=== PATIENT | male | born 1970 | race Caucasian/White ===

== ENCOUNTER 2017-04-15 13:39 | Observation (INO) | payer OTHER ==
--- NOTE | 2017-04-15 13:59 | CPEKG ---
Heart Rate: 67 RR Interval: 896 P-R Interval: 164 QRSD Interval: 100 QT Interval: 424 QTC Interval: 448 P [place]: -16 QRS [place]: 61 T Wave [place]: 54 EKG Severity - NORMAL ECG - EKG Impression: SINUS RHYTHM Electronically Signed By: Shine Cristina 15-Apr-2017 15:25:37
[2017-04-15 14:11] LABS: ABSOLUTE IMMATURE GRANULOCYTES 0.08 10^3/uL (0.00-0.10); ADD DIFF? NO; ADD MORPH? NO; ADD SCAN? NO; ATYPICAL LYMPHOCYTE FLAG 10 (0-99); FRAGMENT RBC FLAG 0 (0-99); HEMATOCRIT 47.1 % (40.0-51.0); HEMOGLOBIN 16.8 g/dL (13.7-17.5); LEFT SHIFT FLG 10 (0-99); LIPEMIA HEMOLYSIS FLAG 90 (0-99); MEAN CELL HEMOGLOBIN 30.3 pg (27.9-34.1); MEAN CELL HEMOGLOBIN CONCENTR. 35.7 g/dL (32.4-36.7); MEAN PLATELET VOLUME 9.7 fL (8.7-11.7); PLATELET CLUMPS FLAG 0 (0-99); PLATELET COUNT 213 10^3/uL (150-400); RED BLOOD CELL COUNT 5.54 10^6/uL (4.40-6.38); RED CELL DISTRIBUTION WIDTH 12.2 % (11.5-15.2)
[2017-04-15 14:21] LABS: APTT 27.9 SEC (23.0-38.0); INR 1.07 (0.83-1.16); PROTIME(PATIENT) 14.1 SEC (12.0-15.0)
[2017-04-15 14:26] LABS: ANION GAP 10 mEq/L (8-16); CALCIUM 9.5 mg/dL (8.5-10.4); CARBON DIOXIDE 22 mEq/l (22-31); CHLORIDE 108 mEq/L (97-110); CREATININE 0.8 mg/dL (0.7-1.3); GLOMERULAR FILTRATION RATE > 60; GLUCOSE 93 mg/dL (70-100); POTASSIUM 4.3 mEq/L (3.5-5.2); SODIUM 140 mEq/L (134-144)
[2017-04-15] MEDS ORDERED: IOPAMIDOL (ISOVUE-370) 150 ML BTL IV ONE (14:44)
[2017-04-15] MEDS ORDERED: LIDOCAINE 1% 300 MG/30 ML SDV ONE (14:44)
[2017-04-15] MEDS ORDERED: MIDAZOLAM 2 MG/2 ML VIAL ONE ×3 (14:45→16:06)
[2017-04-15] MEDS ORDERED: fentaNYL 100 MCG/2 ML INJ ONE ×3 (14:45→16:06)
[2017-04-15] MEDS ORDERED: ASPIRIN 325 MG TAB ONE (15:09)
--- NOTE | 2017-04-15 15:20 | EDPHY ---
H & P Time Seen by Provider: 04/15/17 13:49 HPI/ROS: HPI Chest pain. 47-year-old male by private vehicle with significant other. I received a call from floor director, Dr. Kevin Candelaria. This patient has had ongoing and worsening chest pain for the last month. He is currently followed by a floor director named Dr. Rodriguez. Dr. Rodriguez performed a stress test on him yesterday. This was abnormal. Dr. Rodriguez could not arrange for PCI today. He discussed the case with Dr. while in Dr. Candelaria agreed to have the patient come here to our emergency department and he would take the patient to the mill labor supervisor for PCI. The patient denies any chest pain currently. ROS: Constitutional: No fever, no chills. No weakness. Eyes: No discharge. No changes in vision. ENT: No sore throat. No nasal congestion or rhinorrhea. Respiratory: No cough. No shortness of breath. Cardiac: As above, no palpitations. Gastrointestinal: No abdominal pain, no vomiting, no diarrhea. Genitourinary: No hematuria. No dysuria or increased frequency with urination. Musculoskeletal: No back pain. No neck pain. No myalgias or arthralgias. Skin: No rashes. Neurological: No headache. No focal weakness or altered sensation. Past medical history: As above. Social history: Nonsmoker. Here with significant other. Denies alcohol. Physical Exam: General Appearance: Alert, no distress. Large man. This patient is responding to questions appropriately and in full sentences. This patient appears well- hydrated and well-nourished. Eyes: Pupils equal and round no pallor or injection. No lid edema, erythema or injection. Respiratory: There are no retractions, lungs are clear to auscultation with good air movement bilaterally. Cardiovascular: Regular rate and rhythm. No murmur. Gastrointestinal: Abdomen is soft and nontender, no masses, bowel sounds normal. No focal tenderness at McBurney's point. No Lane sign. Neurological: Motor sensory function is grossly intact. Cranial nerves are normal. Gait is normal. Skin: Warm and dry, no rashes. Musculoskeletal: Neck is supple and nontender. Extremities are symmetrical. All joints range without pain or impingement. Psychiatric: No agitation. No depression. Database: EKG: EKG time is 1:57 p.m.; EKG shows a narrow complex normal sinus rhythm with a ventricular rate of 67. The MI, QRS, QT intervals are within normal limits. There are no ST-T wave changes indicative of ischemic or injury pattern. No evidence of right heart strain. Interpreted by me. Imaging: Procedures: Emergency department course: IV was placed. EKG obtained and reviewed by myself. Vital signs reviewed. I informed Dr. Candelaria the patient was here shortly after his arrival fill. Dr. Candelaria was the patient's bedside at 2:30 p.m.. He evaluated the patient in the emergency department and took the patient to the mill labor supervisor at 3:15 p.m.. Patient 's remaining emergency department course under my care has been uneventful. He has had no chest pain while in the emergency department. Differential Diagnosis: The differential diagnosis on this patient includes but is not limited to coronary artery disease, acute coronary syndrome. Pulmonary embolism, aortic dissection, myocarditis, pericarditis unlikely. This represents a partial list of diagnoses considered. These considerations are based on history, physical exam, past history, reassessment and diagnostic testing. Smoking Status: Never smoked Constitutional: Initial Vital Signs Temperature (C) 36.7 C 04/15/17 13:42 Heart Rate 72 04/15/17 13:42 Respiratory Rate 18 04/15/17 13:42 Blood Pressure 149/93 H 04/15/17 13:42 O2 Sat (%) 95 04/15/17 13:42 Allergies/Adverse Reactions: No Known Allergies Allergy (Unverified 10/07/10 14:47) Home Medications: Medication Instructions Recorded NO HOME MEDS 03/05/10 Aspirin 325 mg (*) 04/15/17 Rosuvastatin Calcium 04/15/17 Medical Decision Making - Data Points Laboratory Results: Laboratory Results 04/15/17 14:03 04/15/17 14:03 04/15/17 04/15/17 04/15/17 14:03 14:03 14:03 WBC 7.67 10^3/uL 10^3/uL (3.80-9.50) RBC 5.54 10^6/uL 10^6/uL (4.40-6.38) Hgb 16.8 g/dL g/dL (13.7-17.5) Hct 47.1 % % (40.0-51.0) MCV 85.0 fL fL (81.5-99.8) MCH 30.3 pg pg (27.9-34.1) MCHC 35.7 g/dL g/dL (32.4-36.7) RDW 12.2 % % (11.5-15.2) Plt Count 213 10^3/uL 10^3/uL (150-400) MPV 9.7 fL fL (8.7-11.7) Neut % (Auto) 70.4 % % (39.3-74.2) Lymph % (Auto) 16.4 % % (15.0-45.0) [place] % (Auto) 8.7 % % (4.5-13.0) Eos % (Auto) 3.0 % % (0.6-7.6) Baso % (Auto) 0.5 % % (0.3-1.7) Nucleat RBC Rel Count 0.0 % % (0.0-0.2) Absolute Neuts (auto) 5.39 10^3/uL 10^3/uL (1.70-6.50) Absolute Lymphs (auto) 1.26 10^3/uL 10^3/uL (1.00-3.00) Absolute Monos (auto) 0.67 10^3/uL 10^3/uL (0.30-0.80) Absolute Eos (auto) 0.23 10^3/uL 10^3/uL (0.03-0.40) Absolute Basos (auto) 0.04 10^3/uL 10^3/uL (0.02-0.10) Absolute Nucleated RBC 0.00 10^3/uL 10^3/uL (0-0.01) Immature Gran % 1.0 % % (0.0-1.1) Immature Gran # 0.08 10^3/uL 10^3/uL (0.00-0.10) PT 14.1 SEC SEC (12.0-15.0) INR 1.07 (0.83-1.16) APTT 27.9 SEC SEC (23.0-38.0) Sodium 140 mEq/L mEq/L (134-144) Potassium 4.3 mEq/L mEq/L (3.5-5.2) Chloride 108 mEq/L mEq/L (97-110) Carbon Dioxide 22 mEq/l mEq/l (22-31) Anion Gap 10 mEq/L mEq/L (8-16) BUN 9 mg/dL mg/dL (7-23) Creatinine 0.8 mg/dL mg/dL (0.7-1.3) Estimated GFR > 60 Glucose 93 mg/dL mg/dL (70-100) Calcium 9.5 mg/dL mg/dL (8.5-10.4) Departure - Departure Disposition: To OP Cath/Surgery Clinical Impression: Chest pain, Abnormal stress test Referrals: KORTNEY ARGUETA [Other] - As per Instructions
[2017-04-15] MEDS ORDERED: BIVALIRUDIN 250 MG/5 ML VIAL IV ONE (15:57)
[2017-04-15] MEDS ORDERED: NITROGLYCERIN 1,500 MCG/15 ML VIAL MISC ONE (15:57)
[2017-04-15] MEDS ORDERED: ETOMIDATE 40 MG/20 ML INJ ONE (16:31)
[2017-04-15] MEDS ORDERED: CLOPIDOGREL BISULFATE 75 MG TAB ONE (16:51)
[2017-04-15] MEDS ORDERED: TEMAZEPAM 15 MG CAP PO PRN (17:02)
[2017-04-15] MEDS ORDERED: CLOPIDOGREL BISULFATE 75 MG TAB PO ONE (17:02)
[2017-04-15] MEDS ORDERED: NITROGLYCERIN 0.4 MG BTL SL PRN (17:02)
[2017-04-15] MEDS ORDERED: ONDANSETRON 4 MG/2 ML VIAL IVP PRN (17:02)
[2017-04-15] MEDS ORDERED: ATROPINE SULFATE 1 MG/10 ML SYR IVP PRN (17:02)
[2017-04-15] MEDS ORDERED: HYDROCODONE/APAP 5/325 TAB PO PRN (17:02)
[2017-04-15] MEDS ORDERED: LORazepam 2 MG/ML INJ IVP PRN (17:02)
[2017-04-15] MEDS ORDERED: OXYCODONE/APAP 5/325 TAB PO PRN (17:02)
--- NOTE | 2017-04-15 17:22 | CPEKG ---
Heart Rate: 60 RR Interval: 1000 P-R Interval: 184 QRSD Interval: 102 QT Interval: 452 QTC Interval: 452 P [place]: -28 QRS [place]: 68 T Wave [place]: 67 EKG Severity - NORMAL ECG - EKG Impression: SINUS RHYTHM Electronically Signed By: Aysha Howell 16-Apr-2017 06:02:34
--- NOTE | 2017-04-15 18:39 | PDPROPOC ---
Sedation Plan of Care Sedation Plan of Care: vital signs stable, mental status noted, patient educated of risks, benefits, alternatives, patient can tolerate sedation ASA Classification: ASA 2 Planned drugs: fentanyl, midazolam Mallampati Score: Class 2 Mallampati Reference Image: Patient passed 3-3-2 rule?: Yes
--- NOTE | 2017-04-15 18:41 | PDGENHP ---
History & Physical Chief Complaint: Chest pain, sob History of Present Illness: 47 year old male with 2 month hx of progressive sob , pulido and exertional chest discomfort found to have abnormal ETT yesterday with ECG changes and chest pain and sub max level of exertion. Pertinent Past, Social, Family History: No significant pmh Relevant Physical Exam: Normal exam
--- NOTE | 2017-04-15 20:46 | GHP ---
[f rep st] HISTORY AND PHYSICAL DATE OF ADMISSION: 04/15/2017 INDICATION FOR ADMISSION: Complaints of increasing exertional substernal chest burning with pain radiating down his left arm, coupled with an abnormal exercise treadmill stress test, performed yesterday by Dr. Ne Rodriguez, at [facility]. HISTORY OF PRESENT ILLNESS: This is a pleasant 47-year-old gentleman, with past medical history of hypertension and metabolic syndrome, who has noticed intermittent episodes of chest discomfort. He describes his chest discomfort as acid reflux-like symptoms that are in the center of his chest, that is associated with also bilateral arm discomfort. These symptoms typically occur with exertion and resolve with rest. He has also progressed over the last several weeks to have symptoms at rest. He was seen by director outcomes, Dr. Ne Rodriguez, who had arranged for an exercise treadmill stress test to be performed yesterday. During his stress test yesterday, he was able to exercise for a total of 5 minutes and 40 seconds on a standard Joon protocol. He achieved a peak heart rate of 125 beats per minute. The test was terminated prior to peak heart rate secondary to the onset of [address]-segment depression in inferior leads, associated with mild chest tightness, with radiation into the left arm. His symptoms persisted until 9 minutes into the recovery phase. As a result, Dr. Rodriguez had contacted me to perform diagnostic left heart catheterization secondary to scheduling challenges at her own institution and desire to have him taken care of sooner rather than later. Again, the patient described symptoms beginning initially in January, that have gradually progressed to substernal chest discomfort, which he describes as a burning sensation, which feels like heartburn, with pain radiating down both his arms. He had an episode the other night while walking in to see the [employer] game in [place], where while walking briskly, he had gradual and progressive onset of symptoms forcing him to stop, then gradually resolved with rest. Currently, at the time of my exam, he is resting comfortably. ECG demonstrates normal sinus rhythm with no evidence of infarct ischemia. PAST MEDICAL HISTORY: 1. Hypertension. 2. Metabolic syndrome. PAST SURGICAL HISTORY: None. ALLERGIES: To medications: None. MEDICATIONS: He was recently started on lisinopril 10 mg once daily, Crestor 20 mg daily, and aspirin 81 mg daily. FAMILY HISTORY: He is adopted, but does know his biologic father for the last 20 years. His biologic father did have a myocardial infarction at the age of 58. SOCIAL HISTORY: The patient is . He lives with his in [place]. He is a lifelong nonsmoker. He drinks approximately 1 beer per night. 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 PHYSICAL EXAMINATION: VITAL SIGNS: Blood pressure 149/93, heart rate of 72; in sinus rhythm, respiratory rate of 18, oxygen saturation 95% on room air, temperature 36.7. GENERAL: He is awake, alert, oriented, appropriate. No apparent distress. NECK: There is no evidence of JVP or carotid bruits. LUNGS : Clear to auscultation bilaterally. CARDIAC: S1, S2. Regular rate and rhythm. No murmurs, rubs, or gallops. ABDOMEN: Soft, nontender, nondistended. EXTREMITIES: Right common femoral artery pulse is 2+. He has distal pulses in the right lower extremity, as well as left. No evidence of cyanosis, clubbing, or edema. DIAGNOSTIC STUDIES: ECG demonstrates normal sinus rhythm with normal intervals and normal axis. No evidence of ischemia or infarction. DATA: White blood cell count 7.67, hemoglobin of 16.8, hematocrit 47.1, platelet count 213, INR 1.07. Sodium 140, potassium 4.3, chloride 108, bicarb 22, BUN 9, creatinine 0.8, calcium 9.5. IMPRESSION: 1. Progressive symptoms of exertional chest discomfort radiating down both arms , left greater than right. 2. Abnormal exercise treadmill stress test with exertional chest pain, as well as electrocardiogram changes. 3. Hypertension. 4. Metabolic syndrome. SUMMARY: The patient is a 47-year-old gentleman, with progressive symptoms and abnormal treadmill stress test, who presents today for diagnostic left heart catheterization, at the request of his primary director outcomes, Dr. Ne Rodriguez. I have reviewed the risks and benefits of diagnostic left heart catheterization with the patient in detail. He is agreeable to pursue. He has no contraindications to dual antiplatelet therapy. He has no upcoming surgeries. He has no history of peptic ulcer disease. PLAN: 1. Diagnostic left heart catheterization. 2. Further medical management pending the results of diagnostic left heart catheterization. 45 min spent coordinating care. /[id number]/MODL MTDD
--- NOTE | 2017-04-15 20:47 | CPIP ---
[f rep st] INVASIVE CARDIAC PROCEDURE DATE OF PROCEDURE: 04/15/2017 REPORT TITLE: Cardiology Catheterization Report BODY AFTER REPORT TITLE: PROCEDURE PERFORMED: Diagnostic left heart catheterization. INDICATION FOR PROCEDURE: Exertional chest discomfort coupled with abnormal exercise treadmill stres s test yesterday with [address]-segment depression coupled with the development of chest pain at sub-pe ak heart rates with radiation to the arms, prompting diagnostic left heart catheterization to be done here at [facility] today. I have spoken with his Primary Steam Service Inspector, Dr. Rodriguez, who was concerned about his health and was u nable to have him undergo a left heart catheterization at her institution today. PROCEDURE: After informed consent was obtained, the patient underwent a 6-Rwandan sheath placed in th e right common femoral artery via the modified Seldinger technique. Using JL4 catheter, images were taken of the left coronary anatomy in multiple projections. JL4 catheter was exchanged over a guidew hu for a JR4 catheter. JR4 catheter was used to take images of the right coronary anatomy. The JR4 catheter was exchanged over a guidewire for angled pigtail catheter. Angled pigtail catheter was us ed to cross the aortic valve. Left ventriculogram was performed. LVEDP was assessed. The aortic va lve gradient was assessed on pull-back. Angled pigtail catheter was removed over a guidewire without complications. FINDINGS: 1. Left main normal size and caliber without any evidence of coronary disease. 2. Left anterior descending artery demonstrates a 99% subtotal occlusion in the proximal LAD at the level of the first diagonal and first large septal perforators. There is a distal lesion of approxim ately 40% at the bifurcation of the 2nd large diagonal branch. 3. Circumflex artery is a large dominant vessel with no evidence of coronary artery disease. 4. Right coronary artery gives rise to large marginal branch. There is no evidence of coronary dise ase within the right coronary artery. HEMODYNAMICS: LVEF of 50% to 55% with some mild anterior wall hypokinesis. LVEDP of 29 mmHg. Aorti c valve gradient: None. CONCLUSION: 1. Severe single-vessel disease with subtotally occluded proximal left anterior descending lesion. R esidual 40% lesion at the bifurcation of the 2nd moderate-sized diagonal branch. 2. Mild anterior wall hypokinesis with left ventricular ejection fraction of 50% to 55%. I have reviewed images with my interventional colleagues. We will plan for percutaneous coronary int ervention to the proximal LAD. /[id number]/MODL
--- NOTE | 2017-04-16 03:38 | CPIP ---
[f rep st] INVASIVE CARDIAC PROCEDURE DATE OF PROCEDURE: 04/15/2017 PROCEDURES PERFORMED: 1. Coronary catheterization. 2. Stent of the LAD with a 4.0 x 16 Synergy drug-eluting stent. INDICATION FOR PROCEDURE: Unstable angina with high-risk and abnormal stress test. PROCEDURE IN DETAIL: After informed consent was obtained, n.p.o. status was confirmed, the patient w as taken to the cardiac catheterization laboratory and underwent selective coronary angiography, left heart catheterization, left ventriculogram under the care of Dr. Kevin Candelaria. I was asked for intrao perative consultation for balloon angioplasty and stent implantation of the LAD after a 99% lesion of the LAD was identified. The left main coronary lumen is approximately 6 mm in size. It bifurcates into an LAD and dominant left circumflex system. At the level of the 1st diagonal and septal takeoff , there is a 99% obstruction of the LAD with MAXIMILIANO-3 flow distally. The LAD thereafter bifurcates int o a diagonal and LAD system at the level of the second and larger diagonal and, therefore, principal diagonal take-off. The LAD proper has a 40% stenosis just distal to the diagonal takeoff without abn ormal flow characteristics within the blood vessel. A 6-Chadian 3.5 EBU catheter was used for guided catheter support. A 0.014 wire was advanced across t he lesion in question and it was ballooned primarily with a 2.0 x 15 Emerge balloon. The vessel was then stented with a 4.0 x 16 Synergy drug-eluting stent implanted at a maximum pressure of 14 atmosph eres with 2 serial inflations at that pressure. This resulted in a pinch of the side branch of the s mall diagonal of approximately 90% and, therefore, a second Intuition wire was advanced across that l esion and it was ballooned with a 1.5 x 8 Emerge balloon with a 20% residual stenosis status post PTC A of the diagonal side branch. Final angiography without the wires in place documented MAXIMILIANO-3 flow t o the LAD and diagonal systems without flow-limiting obstruction or other immediate problems. Patient will return to the post cath recovery unit in good and stable condition, where a STAT postope rative EKG will be obtained. The patient will be admitted overnight for observation and should be ab le to be discharged tomorrow unless complications ensue. /[id number]/MODL
--- NOTE | 2017-04-16 05:02 | CPEKG ---
Heart Rate: 61 RR Interval: 984 P-R Interval: 168 QRSD Interval: 96 QT Interval: 436 QTC Interval: 440 P [place]: -27 QRS [place]: 81 T Wave [place]: 77 EKG Severity - NORMAL ECG - EKG Impression: SINUS RHYTHM Electronically Signed By: Aysha Howell 16-Apr-2017 06:01:06
[2017-04-16 05:14] VITALS: O2SAT 94
[2017-04-16 05:28] LABS: % IMMATURE GRANULYOCYTES 0.9 % (0.0-1.1); ABSOLUTE IMMATURE GRANULOCYTES 0.06 10^3/uL (0.00-0.10); ADD DIFF? NO; ADD MORPH? NO; ADD SCAN? NO; ATYPICAL LYMPHOCYTE FLAG 0 (0-99); FRAGMENT RBC FLAG 0 (0-99); HEMATOCRIT 45.6 % (40.0-51.0); HEMOGLOBIN 15.5 g/dL (13.7-17.5); LEFT SHIFT FLG 10 (0-99); LIPEMIA HEMOLYSIS FLAG 90 (0-99); MEAN CELL HEMOGLOBIN 29.2 pg (27.9-34.1); MEAN CELL VOLUME 85.9 fL (81.5-99.8); PLATELET CLUMPS FLAG 0 (0-99); PLATELET COUNT 205 10^3/uL (150-400); RED BLOOD CELL COUNT 5.31 10^6/uL (4.40-6.38); RED CELL DISTRIBUTION WIDTH 12.3 % (11.5-15.2)
[2017-04-16 06:05] LABS: ALBUMIN 3.6 g/dL (3.5-5.0); ANION GAP 11 mEq/L (8-16); ASPARTATE AMINOTRANSFERASE 26 IU/L (17-59); CALCIUM 8.8 mg/dL (8.5-10.4); CARBON DIOXIDE 23 mEq/l (22-31); CHLORIDE 107 mEq/L (97-110); CREATININE 0.9 mg/dL (0.7-1.3); GLOMERULAR FILTRATION RATE > 60; GLUCOSE 96 mg/dL (70-100); LACTATE DEHYDROGENASE 406 IU/L (313-618); MAGNESIUM 2.1 mg/dL (1.6-2.3); POTASSIUM 4.5 mEq/L (3.5-5.2); SODIUM 141 mEq/L (134-144)
[2017-04-16 07:53] VITALS: BP 127/83; PULSE 70; RESP 12; TEMP 98.1
[2017-04-16] MEDS ORDERED: ROSUVASTATIN CALCIUM 20 MG TAB PO SCH (09:00)
[2017-04-16] MEDS ORDERED: ASPIRIN EC 325 MG TAB PO SCH (09:00)
[2017-04-16] MEDS ORDERED: CLOPIDOGREL BISULFATE 75 MG TAB PO SCH (09:00)
[2017-04-16] MEDS ORDERED: LISINOPRIL 2.5 MG TAB PO SCH (09:00)
--- NOTE | 2017-04-16 10:05 | ASMTCMCOM ---
CM Note CM Note Notes: Reviewed chart and discussed w/RN. Pt will dc home independantly when medically stable. Date Signed: 04/16/2017 10:05 AM Electronically Signed By:Nikia Granger RN
--- NOTE | 2017-04-16 10:36 | PDCARPN ---
Cardiology Progress Note Assessment/Plan: Assessment: 1.CAD: subtotal proximal LAD with successful PCI x one. Residual 40% Mid to Distal LAD at bifurcation of diagnonal 2. Essential hypertension Plan: 1. Aspirin 325 mg daily 2. Plavix 75 mg daily x one year 3. Continue Rosuvastatin 20 mg daily 4. Continue Lisinopril 10 mg daily 5. Recommend Cardiac rehab 6. Discussed diet and exercise 7. Follow up with his primary repair miller, Dr. Hayes 8. Post cath instructions provided 45 minutes spent coordinating discharge 04/16/17 10:32 Subjective: 47 year old gentleman with progressive anginal symptoms over the last 2 months with abnormal ETT on Apr 14, [address] depression and chest pain at sub max work level who presented for [facility] to [facility] at the request of his primary repair miller, Dr. Hayes. Reviewed/Discussed With: family, multidisciplinary team Time Spent With Patient: 45 min Objective: Vital Signs (8 Hrs) Temp Pulse Resp BP Pulse Ox 04/16/17 07:53 36.7 C 70 12 127/83 H 94 04/16/17 05:13 36.7 C 77 16 121/71 H 94 Intake/Output (24 Hrs) 04/15/17 04/16/17 04/17/17 05:59 05:59 05:59 Intake Total 2600 Output Total 1000 Balance 1600 Intake: Oral (ml) 1200 IV Intake (ml) 1400 Output: Urine (ml) 1000 Urinal 1000 Other: Weight 130.181 kg Intake Quantity Yes Sufficient Number of Voids Toilet 1 Urinal 2 Result Diagrams: 04/16/17 05:19 04/16/17 05:19 - Physical Exam Constitutional: WDWN Cardiovascular: regular rate and rhythm, no murmurs, no rubs, no gallops (right groin with out hematoma or ecchymosis) Peripheral Pulses: 2+: dorsalis-pedis (R) Respiratory: clear to auscultate bilat, expiratory wheeze Skin: no rashes Musculoskeletal: no muscular tenderness Neurologic: AAOx3, CN II-XII grossly intact Psychiatric: cooperative, interactive ICD10 Worksheet Patient Problems: Problems Problem Status Onset Chest pain Acute Abnormal stress test Acute
--- NOTE | 2017-04-16 12:43 | GDS ---
[f rep st] DISCHARGE SUMMARY REASON FOR ADMISSION: The patient is a 47-year-old gentleman with progressive symptoms of angina with abnormal exercise treadmill stress test performed with his primary Bottle Labeler, Dr. Rodriguez, the day prior to admission with symptoms as well as ECG changes at submaximal level of exercise. DISCHARGE DIAGNOSES: 1. Severe single-vessel coronary artery disease. 2. Successful percutaneous coronary intervention with a 4.0 x 16 mm Synergy drug-eluting stent to the proximal left anterior descending. 3. A 40% residual stenosis of the mid left anterior descending at the bifurcation of the diagonal branch. 4. Hypertension. HOSPITAL COURSE: The patient is a pleasant 47-year-old gentleman with no significant past medical history, who has being experiencing progressive exertional anginal symptoms since January 2017. He was seen by a ornamental plaster sticker, Dr. Rodriguez, who performed an exercise treadmill stress test which was markedly abnormal with ECG changes and symptoms of chest pressure at submaximal level of exercise. The patient was unable to have angiogram performed at [facility]. Therefore, Dr. Rodriguez had contacted me and asking if we were able to perform diagnostic left heart catheterization at our institution yesterday. The patient was able to present to [facility] where I evaluated him in the emergency room and reviewed his records including stress test results. Based on his symptoms, his abnormal stress test, decision was made to pursue diagnostic left heart catheterization. Left heart catheterization demonstrated a subtotal proximal LAD stenosis of approximately 99% and a mid LAD lesion of approximately 40% a the bifurcation of a diagonal branch. He underwent successful percutaneous coronary intervention with my interventional colleague, Dr. Last Crenshaw, with a 4.0 x 16 mm Synergy drug-eluting stent. There were no postoperative complications. He tolerated the procedure well. He was stable for discharge the following morning. LABORATORY DATA: At time of discharge include white blood cell count of 6.71, hemoglobin of 15.5, hematocrit 45.6, platelet count 205. Sodium 141, potassium 4.5, chloride 107, bicarb 23, BUN 11, creatinine 0.9. AST 26, magnesium 2.1. PHYSICAL EXAMINATION: VITAL SIGNS: At time of discharge, blood pressure 127/83 , heart rate of 70 in normal sinus rhythm, respiratory rate of 12, oxygen saturation 94% on room air, temperature 36.7. GENERAL: He is awake, alert, oriented, appropriate. No apparent distress. LUNGS: Clear to auscultation bilaterally. CARDIAC: S1, S2. Regular rate and rhythm. No murmurs, rubs, or gallops. ABDOMEN: Soft, nontender. EXTREMITIES: Right groin site is stable without evidence of hematoma or ecchymosis. Distal pulses are intact. There is no evidence of cyanosis, clubbing or edema. MEDICATIONS AT TIME OF DISCHARGE: Include: 1. Aspirin 325 mg once daily. 2. Plavix 75 mg once daily. 3. Lisinopril 10 mg once daily. 4. Rosuvastatin 20 mg once daily. 5. Fish oil 1000 mg daily. 6. Multivitamins once daily. 7. He has also been given a prescription for p.r.n. sublingual nitroglycerin. PLAN: 1. Patient will be discharged home. 2. Patient has been given post left heart catheterization instructions. 3. Patient has been recommended to enroll in cardiac rehab completing 36 sessions over the next 12 weeks. 4. Patient will follow up with his primary Bottle Labeler, Dr. Rodriguez. 5. Patient has been given prescription for Plavix with 90 pills with 3 refills. 6. Patient has been given strict instructions to not miss antiplatelet agents including aspirin, and Plavix. 45 min spent coordinating discharge /[id number]/MODL MTDD
--- NOTE | 2017-04-16 17:36 | ASDISCHSUM ---
Discharge Information Plan Status:Home with No Needs Medically Cleared to Leave: Discharge Date:04/16/2017 10:56 AM CM D/C Disposition:Home, Routine, Self-Care ADT D/C Disposition:Home, Routine, Self-Care Projected Discharge Date:04/16/2017 10:56 AM Transportation at D/C: Discharge Delay Reason: Follow-Up Date:04/16/2017 10:56 AM Discharge Slot: Final Diagnosis: Placement Information Patient Contact Information Contact Name:RICO Relationship: Address:[address] City:[place] Alternate Phone: [facility]/Zip Code:[place] [address] Email: Financial Information Financial Class:HMO and PPO Plans Primary Plan Desc:[facility] Primary Plan Number:[id number] Secondary Plan Desc: Secondary Plan Number: Assessment Information [facility] CM Progress Note CM Note CM Note Notes: Reviewed chart and discussed w/RN. Pt will dc home independantly when medically stable. Date Signed: 04/16/2017 10:05 AM Electronically Signed By:Nikia Granger RN Intervention Information
== END 2017-04-16 10:56 | disposition home or self-care (01) ==
LOC: F2W 17:02
PROVIDERS: ADMIT Internal Medicine Cardiovascular Disease; ATTEND Internal Medicine Cardiovascular Disease
PROC: 027034Z Dilation of Coronary Artery, One Artery with Drug-eluting Intraluminal Device, Percutaneous Approach (ICD-10-PCS; principal; 2017-04-15)
PROC: 4A023N7 Measurement of Cardiac Sampling and Pressure, Left Heart, Percutaneous Approach (ICD-10-PCS; 2017-04-15)
PROC: B2151ZZ Fluoroscopy of Left Heart using Low Osmolar Contrast (ICD-10-PCS; 2017-04-15)
PROC: B2111ZZ Fluoroscopy of Multiple Coronary Arteries using Low Osmolar Contrast (ICD-10-PCS; 2017-04-15)
DX: I25.119 Atherosclerotic heart disease of native coronary artery with unspecified angina pectoris (principal); R94.39 Abnormal result of other cardiovascular function study; I10 Essential (primary) hypertension; E88.81 Metabolic syndrome and other insulin resistance; Z79.82 Long term (current) use of aspirin; Z82.49 Family history of ischemic heart disease and other diseases of the circulatory system
CPT/HCPCS: 92928; 93005; 93458; C1725; C1769; C1887; G0378; C1874; C9600; J0461; J0583; J1200; J1644; J2250; J3010; Q9967